=== PATIENT | male | born 1995 | race Two or more races ===

== ENCOUNTER 2017-10-02 11:28 | Emergency (ER) | payer SELFPAY ==
[~2017-10-02] VITALS: Ht 177.8 cm; Wt 68.0 kg
[2017-10-02 11:30] VITALS: BP 147/102
== END 2017-10-02 12:52 | disposition home or self-care (01) ==
LOC: ED 12:46
DX: J01.00 Acute maxillary sinusitis, unspecified (principal); F17.200 Nicotine dependence, unspecified, uncomplicated
CPT/HCPCS: 71046; 99284

== ENCOUNTER 2017-10-27 20:57 | Emergency (ER) | payer OTHER | END 2017-10-27 21:15 | disposition left against medical advice (07) | LOC: ED 21:09 | DX: Z53.21 Procedure and treatment not carried out due to patient leaving prior to being seen by health care provider (principal) ==

== ENCOUNTER 2018-02-08 00:26 | Emergency (ER) | payer MEDICAID, OTHER ==
[~2018-02-08] VITALS: Ht 180.3 cm; Wt 65.0 kg
[2018-02-08] MEDS ORDERED: SODIUM CHLORIDE 0.9% 1,000ML IVBOLUS ONE (01:00)
[2018-02-08 01:04] LABS: BASOPHILS # (AUTO) 0.04 x10^3/uL (0-0.1); BASOPHILS % (AUTO) 1 % (0-1); EOSINOPHILS # (AUTO) 0.07 x10^3/uL (0-0.4); EOSINOPHILS % (AUTO) 1 % (1-7); LYMPHOCYTES % (AUTO) 48 % (22-44); MD NO; MEAN CORPUSCULAR HEMOGLOBIN 30.8 pg (27.5-34.5); MEAN CORPUSCULAR HGB CONC 34.3 g/dL (33.2-36.2); MEAN CORPUSCULAR VOLUME 89.8 fL (81-97); MEAN PLATELET VOLUME 6.9 fL (7.4-10.4); MONOCYTES # (AUTO) 0.46 x10^3/uL (0.2-0.8); MONOCYTES % (AUTO) 6 % (2-9); NEUTROPHILS # (AUTO) 3.23 x10^3/uL (1.8-6.8); NEUTROPHILS % (AUTO) 44 % (42-75); PLATELET COUNT 398 x10^3/uL (130-400); RED CELL DISTRIBUTION WIDTH 14.6 % (9.4-14.8)
[2018-02-08 01:13] LABS: ALANINE AMINOTRANSFERASE 41 U/L (12-78); ALBUMIN 3.7 g/dL (3.4-5.0); ANION GAP 9 mmol/L (5-15); CALCIUM 7.9 mg/dL (8.5-10.1); CHLORIDE 111 mmol/L (98-107); CREATININE 0.85 mg/dL (0.7-1.3)
[2018-02-08 01:22] LABS: ACETAMINOPHEN < 2 mcg/mL (10-30); ALKALINE PHOSPHATASE 83 U/L (45-117); BILIRUBIN,TOTAL 0.3 mg/dL (0.2-1.0); TOTAL PROTEIN 8.1 g/dL (6.4-8.2)
[2018-02-08 02:26] VITALS: BP 145/97
[2018-02-08 02:43] LABS: AMPHETAMINE SCREEN, URINE Positive (Negative); BARBITURATE SCREEN, URINE Negative (Negative); BENZODIAZEPINE SCREEN, URINE Negative (Negative); CANNABINOID SCREEN, URINE Positive (Negative); COCAINE SCREEN, URINE Positive (Negative); METHADONE SCREEN, URINE Negative (Negative); OPIATE SCREEN, URINE Negative (Negative)
== END 2018-02-08 02:57 | disposition home or self-care (01) ==
LOC: EDBD 00:26 → ED 02:53 → MERGE 02:53 → ED 02:57
DX: F10.120 Alcohol abuse with intoxication, uncomplicated (principal); I95.9 Hypotension, unspecified; F17.210 Nicotine dependence, cigarettes, uncomplicated; R41.82 Altered mental status, unspecified
CPT/HCPCS: 36415; 80053; 80307; 80329; 85025; 96360; 99284; J7030; G0480

== ENCOUNTER 2019-06-26 12:14 | Emergency (ER) | payer SELFPAY ==
--- NOTE | 2019-06-26 13:40 | NUR ---
Tali leiva in [facility] - 06/26/19 at 1340 by HYUN na x 2
--- NOTE | 2019-06-26 13:40 | NUR ---
na x 2 per report pt was na x 1 @1320
--- NOTE | 2019-06-26 13:51 | NUR ---
NA X 3
== END 2019-06-26 13:53 | disposition left against medical advice (07) ==
LOC: ED 13:37
DX: M79.672 Pain in left foot (principal); Z53.21 Procedure and treatment not carried out due to patient leaving prior to being seen by health care provider

== ENCOUNTER 2020-08-20 17:46 | Emergency (ER) | payer SELFPAY ==
[~2020-08-20] VITALS: Ht 180.3 cm; Wt 67.3 kg
[2020-08-20 17:51] VITALS: BP 124/85
--- NOTE | 2020-08-20 18:14 | NUR ---
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
[2020-08-20] MEDS ORDERED: LIDOCAINE-MPF 1%, 5ML ONE (18:23)
--- NOTE | 2020-08-20 18:27 | NUR ---
LIDO, SUTURE KIT, GLOVES, AND IRRIGATION SET AT BEDSIDE. PROVIDER AWARE.
[2020-08-20] MEDS ORDERED: NEOSPORIN OINT. PKT 1 PACKET ONE (19:19)
== END 2020-08-20 19:36 | disposition home or self-care (01) ==
LOC: ED 19:26
DX: S01.112A Laceration without foreign body of left eyelid and periocular area, initial encounter (principal); S09.90XA Unspecified injury of head, initial encounter; F17.210 Nicotine dependence, cigarettes, uncomplicated; Z21 Asymptomatic human immunodeficiency virus [HIV] infection status; Y00.XXXA Assault by blunt object, initial encounter; Y93.89 Activity, other specified; Y92.89 Other specified places as the place of occurrence of the external cause; Y99.8 Other external cause status
CPT/HCPCS: 12052; 99284; 99406